=== PATIENT | male | born 1970 | race Caucasian/White ===

== ENCOUNTER 2020-10-21 06:54 | Emergency (ER) | payer SELFPAY ==
[~2020-10-21] VITALS: Ht 182.9 cm; Wt 78.7 kg
[2020-10-21 06:56] VITALS: BP 172/95
--- NOTE | 2020-10-21 07:06 | NUR ---
PT IS A 50M COMPLAINING OF EAR PAIN/PRESSURE SINCE YESTERDAY. WORSENING PAIN TODAY. DENIES ANY OTHER RECENT ILLNESS. PROVIDER AT BEDSIDE FOR EVAL AND PLAN OF CARE. NO FURTHER NEEDS AT THIS TIME.
--- NOTE | 2020-10-21 07:08 | NUR ---
THE PAIN IS IN THE LEFT EAR
--- NOTE | 2020-10-21 07:25 | NUR ---
Patient/Caregiver given discharge instructions and they have confirmed that they understand the instructions. Patient ambulatory with steady gait.
== END 2020-10-21 07:26 | disposition home or self-care (01) ==
LOC: ED 07:10
DX: H60.592 Other noninfective acute otitis externa, left ear (principal)
CPT/HCPCS: 99283